=== PATIENT | male | born 1945 | race Caucasian/White ===

== ENCOUNTER 2017-06-13 09:20 | Emergency (ER) | payer MEDICARE, OTHER ==
[~2017-06-13] VITALS: Ht 167.6 cm; Wt 88.0 kg
[2017-06-13 11:43] LABS: BASOPHILS % (AUTO) 0.5 % (0-1); EOSINOPHILS # (AUTO) 0.5 X10'3 (0-0.9); EOSINOPHILS % (AUTO) 6.6 % (0-6); HEMATOCRIT 29.2 % (42.0-52.0); HEMOGLOBIN 9.4 g/dl (14.0-17.9); LYMPHOCYTES # (AUTO) 1.1 X10'3 (1.1-4.8); LYMPHOCYTES % (AUTO) 14.2 % (21-51); MEAN CORPUSCULAR HEMOGLOBIN 29.1 PG (27.0-31.0); MEAN CORPUSCULAR HGB CONC 32.2 % (33.0-36.5); MEAN CORPUSCULAR VOLUME 90.3 FL (78-98); MEAN PLATELET VOLUME 7.3 FL (7.4-10.4); MONOCYTES # (AUTO) 0.7 X10'3 (0-0.9); MONOCYTES % (AUTO) 9.3 % (2-12); NEUTROPHILS # (AUTO) 5.6 X10'3 (1.8-7.7); NEUTROPHILS % (AUTO) 69.4 % (42-75); PLATELET COUNT 686 X10'3 (140-440); RED BLOOD COUNT 3.23 X10'6 (4.70-6.10); RED CELL DISTRIBUTION WIDTH 17.6 % (11.5-14.5)
[2017-06-13 11:53] LABS: INR 0.9 INR; PARTIAL THROMBOPLASTIN TIME 27 SECONDS (22-32); PROTHROMBIN TIME 9.6 SECONDS (9.0-12.0)
[2017-06-13 12:07] LABS: ALANINE AMINOTRANSFERASE 27 U/L (12-78); ALBUMIN 3.9 G/DL (3.4-5.0); ALBUMIN/GLOBULIN RATIO 1.3 (1.1-1.5); ALKALINE PHOSPHATASE 69 IU/L (46-116); ANION GAP 11 (8-16); ASPARTATE AMINO TRANSFERASE 12 U/L (10-37); BILIRUBIN,TOTAL 0.3 MG/DL (0.1-1.0); BLOOD UREA NITROGEN 22 MG/DL (7-18); BUN/CREATININE RATIO 25.6 (5.4-32.0); CALCIUM 8.1 MG/DL (8.5-10.1); CHLORIDE 107 MMOL/L (99-107); CREATININE 0.86 MG/DL (0.60-1.10); GLUCOSE 101 MG/DL (70-104); POTASSIUM 3.9 MMOL/L (3.5-5.1); SODIUM 145 MMOL/L (135-145); TOTAL CARBON DIOXIDE 26.9 MMOL/L (24-32); TOTAL PROTEIN 6.8 G/DL (6.4-8.2); eGFR 88 ML/MIN
[2017-06-13] MEDS ORDERED: iohexol 350 MG/ML 50ML vial IV ONE (12:40)
[2017-06-13] MEDS ORDERED: iohexol 350MG/ML 100ml bottle IV ONE (12:40)
[2017-06-13] MEDS ORDERED: normal saline 1000ml 1,000 ML IV SCH (15:59)
[2017-06-13 17:09] VITALS: BP 140/69
[2017-06-14] MEDS ORDERED: OMEP20TA23 PO (07:29)
[2017-06-14] MEDS ORDERED: ASPI-1265 PO (07:29)
[2017-06-14] MEDS ORDERED: LISI-645 PO (07:29)
[2017-06-14] MEDS ORDERED: TRAM50TA2 PO (07:29)
[2017-06-14] MEDS ORDERED: GABA100C PO (07:29)
[2017-06-14] MEDS ORDERED: LEVO100T PO (07:29)
== END 2017-06-13 17:21 | disposition left against medical advice (07) ==
LOC: ER 09:20
DX: I77.89 Other specified disorders of arteries and arterioles (principal); I10 Essential (primary) hypertension
CPT/HCPCS: 36415; 75635; 80053; 85025; 85610; 85730; 99285; Q9967

== ENCOUNTER 2017-06-14 06:19 | Inpatient (IN) | payer MEDICARE, OTHER ==
[~2017-06-14] VITALS: Ht 167.6 cm; Wt 75.9 kg
[2017-06-14] VITALS (10 sets, daily range): BP systolic 141–171; BP diastolic 55–72
[2017-06-14] MEDS ORDERED: GABA100C PO (07:29)
[2017-06-14] MEDS ORDERED: LISI-645 PO (07:29)
[2017-06-14] MEDS ORDERED: ASPI-1265 PO (07:29)
[2017-06-14] MEDS ORDERED: OMEP20TA23 PO (07:29)
[2017-06-14] MEDS ORDERED: TRAM50TA2 PO (07:29)
[2017-06-14] MEDS ORDERED: LEVO100T PO (07:29)
[2017-06-14] MEDS ORDERED: sodium chloride 0.45% 1,000 ML IV SCH (07:56)
[2017-06-14] MEDS ORDERED: ondansetron/PF 4mg/2ml inj IV PRN (08:00)
[2017-06-14] MEDS ORDERED: bisacodyl 10mg suppository rectal RC PRN (08:00)
[2017-06-14] MEDS ORDERED: acetaminophen 325mg tablet PO PRN (08:00)
[2017-06-14] MEDS ORDERED: levoTHYROXINE 100mcg tablet PO SCH (08:00)
[2017-06-14 08:46] LABS: BASOPHILS % (AUTO) 0 % (0-1); EOSINOPHILS # (AUTO) 0.5 X10'3 (0-0.9); EOSINOPHILS % (AUTO) 5.3 % (0-6); HEMATOCRIT 25.1 % (42.0-52.0); HEMOGLOBIN 8.3 g/dl (14.0-17.9); LYMPHOCYTES % (AUTO) 10.1 % (21-51); MEAN CORPUSCULAR HEMOGLOBIN 29.2 PG (27.0-31.0); MEAN CORPUSCULAR HGB CONC 33.2 % (33.0-36.5); MEAN CORPUSCULAR VOLUME 88.1 FL (78-98); MONOCYTES # (AUTO) 0.7 X10'3 (0-0.9); MONOCYTES % (AUTO) 6.6 % (2-12); NEUTROPHILS # (AUTO) 7.7 X10'3 (1.8-7.7); PLATELET COUNT 585 X10'3 (140-440); RED BLOOD COUNT 2.84 X10'6 (4.70-6.10); WHITE BLOOD COUNT 9.9 X10'3 (4.5-11.0)
[2017-06-14 08:58] LABS: PARTIAL THROMBOPLASTIN TIME 27 SECONDS (22-32)
[2017-06-14 09:01] LABS: ALANINE AMINOTRANSFERASE 20 U/L (12-78); ALBUMIN 3.4 G/DL (3.4-5.0); ALBUMIN/GLOBULIN RATIO 1.2 (1.1-1.5); ALKALINE PHOSPHATASE 61 IU/L (46-116); ANION GAP 9 (8-16); ASPARTATE AMINO TRANSFERASE 10 U/L (10-37); BILIRUBIN,TOTAL 0.3 MG/DL (0.1-1.0); BLOOD UREA NITROGEN 20 MG/DL (7-18); BUN/CREATININE RATIO 26.7 (5.4-32.0); CALCIUM 8.5 MG/DL (8.5-10.1); CHLORIDE 111 MMOL/L (99-107); CREATININE 0.75 MG/DL (0.60-1.10); GLUCOSE 96 MG/DL (70-104); POTASSIUM 4.1 MMOL/L (3.5-5.1); SODIUM 146 MMOL/L (135-145); TOTAL CARBON DIOXIDE 26.5 MMOL/L (24-32); TOTAL PROTEIN 6.2 G/DL (6.4-8.2); eGFR > 90 ML/MIN
[2017-06-14] MEDS ORDERED: LIDOcaine 1%/PF (10mg/ml) 5ml vial SQ ONE (10:40)
[2017-06-14] MEDS ORDERED: fentaNYL/PF 50MCG/1 ML 2ML syringe IV PRN (10:40)
[2017-06-14] MEDS ORDERED: midazolam 2 mg/2 ml injection IV PRN (10:40)
[2017-06-14] MEDS ORDERED: heparin 1,000 UNITS/NS 500ml 500 ML ICATH ONE (10:40)
[2017-06-14] MEDS ORDERED: iohexol 300mg/ml 100ml inj. ONE (11:07)
[2017-06-14] MEDS ORDERED: LIDOcaine 1%/PF (10mg/ml) 5ml vial ONE (11:07)
[2017-06-14] MEDS ORDERED: midazolam 2 mg/2 ml injection ONE (11:21)
[2017-06-14] MEDS ORDERED: heparin 1,000 UNITS/NS 500ml 500 ML ONE (11:22)
[2017-06-14] MEDS ORDERED: fentaNYL/PF 50MCG/1 ML 2ML syringe ONE ×2 (11:22→11:53)
[2017-06-14] MEDS ORDERED: heparin 1,000unit/ml 10ml vial 10 ML ONE (11:53)
[2017-06-14] MEDS: normal saline 1000ml 1,000 ML IV SCH (13:36)
[2017-06-14] MEDS ORDERED: traMADol 50MG tablet PO ONE (15:05)
[2017-06-14] MEDS ORDERED: lisinopril 20mg tablet PO ONE (17:35)
[2017-06-14] MEDS ORDERED: clopidogrel 75mg tablet PO ONE (18:30)
[2017-06-14] MEDS: temazepam 15mg capsule PO PRN (23:42)
[2017-06-15] VITALS: BP 172/65
[2017-06-15] MEDS: normal saline 1000ml 1,000 ML IV SCH ×2 (03:38→15:28)
[2017-06-15 05:30] LABS: BASOPHILS % (AUTO) 0 % (0-1); EOSINOPHILS # (AUTO) 0.5 X10'3 (0-0.9); EOSINOPHILS % (AUTO) 6.1 % (0-6); HEMATOCRIT 23.3 % (42.0-52.0); HEMOGLOBIN 7.8 g/dl (14.0-17.9); LYMPHOCYTES # (AUTO) 0.9 X10'3 (1.1-4.8); LYMPHOCYTES % (AUTO) 10.3 % (21-51); MEAN CORPUSCULAR HEMOGLOBIN 29.4 PG (27.0-31.0); MEAN CORPUSCULAR HGB CONC 33.5 % (33.0-36.5); MEAN CORPUSCULAR VOLUME 87.8 FL (78-98); MEAN PLATELET VOLUME 7.1 FL (7.4-10.4); MONOCYTES # (AUTO) 0.9 X10'3 (0-0.9); MONOCYTES % (AUTO) 10.1 % (2-12); NEUTROPHILS # (AUTO) 6.4 X10'3 (1.8-7.7); NEUTROPHILS % (AUTO) 73.5 % (42-75); PLATELET COUNT 554 X10'3 (140-440); RED BLOOD COUNT 2.65 X10'6 (4.70-6.10); RED CELL DISTRIBUTION WIDTH 17.8 % (11.5-14.5); WHITE BLOOD COUNT 8.8 X10'3 (4.5-11.0)
[2017-06-15 06:15] LABS: ALANINE AMINOTRANSFERASE 18 U/L (12-78); ALBUMIN 3.2 G/DL (3.4-5.0); ALBUMIN/GLOBULIN RATIO 1.2 (1.1-1.5); ALKALINE PHOSPHATASE 60 IU/L (46-116); ANION GAP 10 (8-16); ASPARTATE AMINO TRANSFERASE 10 U/L (10-37); BILIRUBIN,TOTAL 0.4 MG/DL (0.1-1.0); BLOOD UREA NITROGEN 18 MG/DL (7-18); BUN/CREATININE RATIO 24.7 (5.4-32.0); CHLORIDE 111 MMOL/L (99-107); CREATININE 0.73 MG/DL (0.60-1.10); GLUCOSE 88 MG/DL (70-104); POTASSIUM 3.6 MMOL/L (3.5-5.1); SODIUM 144 MMOL/L (135-145); TOTAL CARBON DIOXIDE 23.1 MMOL/L (24-32); TOTAL PROTEIN 5.8 G/DL (6.4-8.2); eGFR > 90 ML/MIN
[2017-06-15] MEDS: levoTHYROXINE 100mcg tablet PO SCH (07:01)
[2017-06-15] MEDS: traMADol 50MG tablet PO PRN ×2 (07:02→21:31)
[2017-06-15] MEDS: lisinopril 20mg tablet PO SCH (07:02)
[2017-06-15 08:00] VITALS: BP 126/75
[2017-06-15 11:00] VITALS: BP 166/72
[2017-06-15] MEDS ORDERED: CLOP75TA15 PO (17:32)
[2017-06-15] MEDS ORDERED: furosemide 40mg/4ml inj IV ONE (17:35)
[2017-06-15 18:45] VITALS: BP 170/73
[2017-06-15 19:00] VITALS: BP 160/70
[2017-06-15 20:00] VITALS: BP 152/77
[2017-06-15] MEDS: temazepam 15mg capsule PO PRN (21:31)
[2017-06-15] MEDS ORDERED: pantoprazole 40mg Tablet.DR PO SCH (22:00)
[2017-06-16] VITALS: BP 145/69
[2017-06-16] MEDS: traMADol 50MG tablet PO PRN (04:33)
[2017-06-16] MEDS: normal saline 1000ml 1,000 ML IV SCH (04:48)
[2017-06-16 06:00] LABS: BASOPHILS % (AUTO) 0 % (0-1); EOSINOPHILS # (AUTO) 0.4 X10'3 (0-0.9); EOSINOPHILS % (AUTO) 3.4 % (0-6); HEMATOCRIT 25.8 % (42.0-52.0); HEMOGLOBIN 8.5 g/dl (14.0-17.9); LYMPHOCYTES % (AUTO) 8.4 % (21-51); MEAN CORPUSCULAR VOLUME 87.8 FL (78-98); MEAN PLATELET VOLUME 7.3 FL (7.4-10.4); MONOCYTES # (AUTO) 1.2 X10'3 (0-0.9); NEUTROPHILS # (AUTO) 9.2 X10'3 (1.8-7.7); NEUTROPHILS % (AUTO) 78.2 % (42-75); PLATELET COUNT 567 X10'3 (140-440); RED BLOOD COUNT 2.94 X10'6 (4.70-6.10); RED CELL DISTRIBUTION WIDTH 17.9 % (11.5-14.5); WHITE BLOOD COUNT 11.7 X10'3 (4.5-11.0)
[2017-06-16 06:20] LABS: ALANINE AMINOTRANSFERASE 24 U/L (12-78); ALBUMIN 3.5 G/DL (3.4-5.0); ALBUMIN/GLOBULIN RATIO 1.2 (1.1-1.5); ALKALINE PHOSPHATASE 67 IU/L (46-116); ANION GAP 12 (8-16); ASPARTATE AMINO TRANSFERASE 12 U/L (10-37); BILIRUBIN,TOTAL 0.5 MG/DL (0.1-1.0); BLOOD UREA NITROGEN 16 MG/DL (7-18); CALCIUM 8.4 MG/DL (8.5-10.1); CHLORIDE 107 MMOL/L (99-107); CREATININE 0.89 MG/DL (0.60-1.10); GLUCOSE 124 MG/DL (70-104); POTASSIUM 3.5 MMOL/L (3.5-5.1); SODIUM 144 MMOL/L (135-145); TOTAL CARBON DIOXIDE 24.8 MMOL/L (24-32); TOTAL PROTEIN 6.4 G/DL (6.4-8.2); eGFR 84 ML/MIN
[2017-06-16] MEDS: levoTHYROXINE 100mcg tablet PO SCH (06:45)
[2017-06-16 08:00] VITALS: BP_SYST 147; BP_SYST 157; BP_DIAS 66; BP_DIAS 74
[2017-06-16 09:42] VITALS: BP 161/66
[2017-06-16] MEDS: lisinopril 20mg tablet PO SCH (09:43)
[2017-06-16 11:30] VITALS: BP_SYST 174; BP_SYST 178; BP_DIAS 85
[2017-06-16] MEDS ORDERED: furosemide 40mg/4ml inj IV ONE (12:30)
[2017-06-16] MEDS ORDERED: amLODIPine 2.5mg tablet PO SCH (12:30)
[2017-06-16] MEDS ORDERED: AMLO2.5T2 PO (16:41)
== END 2017-06-16 17:13 | disposition home or self-care (01) | DRG 253 ==
LOC: ER 06:20 → ED HOLD 07:56 → SUR 3N 12:54
PROVIDERS: ADMIT Emergency Medicine; ATTEND Emergency Medicine
PROC: 047J3DZ Dilation of Left External Iliac Artery with Intraluminal Device, Percutaneous Approach (ICD-10-PCS; principal; 2017-06-14)
PROC: B41C1ZZ Fluoroscopy of Pelvic Arteries using Low Osmolar Contrast (ICD-10-PCS; 2017-06-14)
PROC: B41G1ZZ Fluoroscopy of Left Lower Extremity Arteries using Low Osmolar Contrast (ICD-10-PCS; 2017-06-14)
DX: I70.202 Unspecified atherosclerosis of native arteries of extremities, left leg (principal); E87.0 Hyperosmolality and hypernatremia; D64.9 Anemia, unspecified; E03.9 Hypothyroidism, unspecified; I10 Essential (primary) hypertension; K21.9 Gastro-esophageal reflux disease without esophagitis; Z79.82 Long term (current) use of aspirin; Z79.899 Other long term (current) drug therapy; Z87.891 Personal history of nicotine dependence
CPT/HCPCS: 36415; 37221; 75710; 80053; 85025; 85610; 85730; 87070; 99152; 99153; 99285; A4620; A6219; C1725; C1769; C1876; C1894; J1644; J1940; J2001; J2250; J3010; J7030; Q9967